=== PATIENT | male | born 1955 | race Caucasian/White ===

== ENCOUNTER 2019-06-25 12:27 | Outpatient (CLI) | payer MEDICARE, SELFPAY ==
--- NOTE | 2019-06-25 12:30 | USCV_ITS ---
Alli Dowd Age: 64 Gender: M : 1955 Exam Date: 06/25/2019 12:29 Ordering Phys: Nilsa Lane MD ([email or web address]) Technologist: Ced Olvera Exam Location: [facility] [place] Indication: CCA STENOSIS Risk Factors: None Previous Vascular Surgery: RT LEG ART GRAFT Right Brachial BP: / Left Brachial BP: / Right Left Velocity (cm/s) Spectral Plaque Velocity (cm/s) Spectral Plaque Syst/Diast Broadening Syst/Diast Broadening 56.70/ 18.60 Prox CCA 64.90 / 17.90 40.40/ 12.40 Mid CCA 63.20 / 17.10 50.50/ 17.90 Hetro Distal CCA 67.50 / 19.70 Hetro 196.00/45.60 Hetro Prox ICA 94.80 / 30.90 Hetro 141.30/54.70 Mid ICA 112.50/ 33.10 198.20/43.30 Distal ICA 111.40/ 34.20 406.70 ECA 284.00 3.50 ICA/CCA 1.67 Antegrade Vertebral Retrograde 78.90/ 11.80 cm/s 46.60/ 21.00 cm/s Bi Subclavian Tri 209.6 152.5 0 0 FINDINGS Moderate to heavy heterogeneous plaques at the right bifurcation and proximal internal carotid artery Moderate heterogeneous plaques of the left bifurcation and proximal internal carotid artery Retrograde flow in the left vertebral artery. Elevated velocities in the external carotid arteries bilaterally CONCLUSIONS Moderate to heavy heterogeneous plaques at the right bifurcation and proximal internal carotid artery with velocity elevation consistent with 50-79% stenosis. Moderate heterogeneous plaques at the left bifurcation and proximal internal carotid artery with velocity elevation consistent with 16-49% stenosis. Elevated velocity in the external carotid arteries bilaterally, suggestive of hemodynamically significant stenosis. Retrograde flow in the left vertebral artery, suggestive of high-grade stenosis in the left proximal subclavian artery. Compared to the previous study from June 2018, the retrograde flow in the left vertebral artery appears to be new Consider CTA, to better evaluate the arch vessels Dr Nilsa Lane MD [facility] (Electronically Signed) Final Date: 26 June 2019 09:08 S
== END 2019-06-25 12:28 | disposition home or self-care (01) ==
LOC: US 12:29
PROVIDERS: Family Provider Nurse Practitioner Family; PCP Family Medicine; Visit Provider Internal Medicine Cardiovascular Disease
DX: I65.23 Occlusion and stenosis of bilateral carotid arteries (principal)
CPT/HCPCS: 93880

== ENCOUNTER 2019-07-10 08:39 | Outpatient (CLI) | payer MEDICARE, SELFPAY ==
--- NOTE | 2019-07-10 09:00 | CT_ITS ---
WS: [id number] CT ANGIOGRAM CAROTID ARTERIES HISTORY: Abnormal Ultrasound, possible RIGHT carotid stenosis. TECHNIQUE: CT angiogram is performed of the carotid arteries. During arterial injection imaging is ob tained from the skull base to the aortic arch in 1.25 mm imaging. Coronal and sagittal reformats are submitted, MIP imaging also reviewed. Additional multiplanar reformats of the carotid arteries are turcios bmitted. NASCET criteria utilized. All CT scans at [facility] use at least one of these d ose optimization techniques: automated exposure control; mA and/or kV adjustment per patient size (in cludes targeted exams where dose is matched to clinical indication); or iterative reconstruction. CONTRAST: Omnipaque 350; 95 mL IV. DLP: 922.99 mGycm COMPARISON: Carotid ultrasound 06/25/2019. Right carotid: Common carotid artery: Mild atherosclerosis with no significant stenosis. Internal carotid artery: Calcified plaque and intimal thickening at the bifurcation. Stenosis calcula alexsander near 60%. External carotid artery: Severe stenosis external carotid artery. Left carotid: Common carotid artery: Mild atherosclerosis at the origin from the arch. Internal carotid artery: No plaque or stenosis. External carotid artery: Patent. Right vertebral artery: Unremarkable. Left vertebral artery: Unremarkable. Arises normally from the left subclavian artery. Subclavian arteries: Mild atherosclerosis proximal LEFT subclavian significant stenosis. Negative RIG HT subclavian for significant stenosis. Upper thorax: Chronic emphysematous changes. Thyroid gland: Normal. Osseous structures: Prior anterior cervical fusion with interbody spacer at C6-7. Skull base: Moderate calcification in the intracranial carotid arteries. No stenosis. Carotid arterie s are only included through the cavernous sinuses. There is a large artery extending from the tip of the basilar artery anteriorly to communicate with the distal RIGHT ICA. CT/CT angio neck 37245 IMPRESSION: 1. Focal stenosis 60% involving the proximal RIGHT ICA. 2. No significant stenosis LEFT ICA. 3. No LEFT subclavian artery stenosis. 4. RIGHT external carotid artery stenosis.
[2019-07-10 10:21] LABS: Blood Urea Nitrogen 17 mg/dL (8-23)
[2019-07-10] MEDS: iohexol 350 mg/mL 100 mL Btl IV (11:02)
== END 2019-07-10 08:40 | disposition home or self-care (01) ==
LOC: RADWPI 08:45
PROVIDERS: Family Provider Nurse Practitioner Family; PCP Nurse Practitioner Family; Visit Provider Internal Medicine Cardiovascular Disease
DX: I65.21 Occlusion and stenosis of right carotid artery
CPT/HCPCS: 70498; 82565; 84520; Q9967

== ENCOUNTER 2020-06-09 14:49 | Outpatient (CLI) | payer MEDICARE, SELFPAY ==
--- NOTE | 2020-06-09 15:00 | USCV_ITS ---
Alli Dowd Age: 65 Gender: M : 1955 Exam Date: 06/09/2020 15:20 Ordering Phys: Nilsa Lane MD ([email or web address]) Technologist: Ced Olvera Exam Location: [facility] [place] Indication: HX OF CCA STENOSIS Risk Factors: None Previous Vascular Surgery: Right Brachial BP: / Left Brachial BP: / Right Left Velocity (cm/s) Spectral Plaque Velocity (cm/s) Spectral Plaque Syst/Diast Broadening Syst/Diast Broadening 83.80/ 20.00 Prox CCA 92.40 / 15.50 64.80/ 19.60 Mid CCA 87.00 / 20.20 71.95/ 20.35 Hetro Distal CCA 83.10 / 22.50 Hetro 136.40/47.35 Hetro Prox ICA 96.00 / 22.30 Hetro 138.20/51.60 Hetro Mid ICA 102.50/ 31.60 Hetro 196.00/36.50 Distal ICA 117.00/ 36.80 223.10 ECA 259.40 2.07 ICA/CCA 1.27 Antegrade Vertebral Antegrade 65.80/ 12.80 cm/s 79.40/ 5.50 cm/s Tri Subclavian Bi 132.1 155.5 0 0 FINDINGS Mild to moderate plaques at the bifurcations bilaterally Intimal thickening in the common carotid arteries bilaterally Antegrade flow in the vertebral arteries bilaterally Elevated velocity in the right distal internal carotid artery Elevated velocities in the external carotid arteries bilaterally Antegrade flow in the vertebral arteries bilaterally CONCLUSIONS 1. Elevated velocity, suggestive of 50 to 69% stenosis at the right bifurcation and less than 50% stenosis at the left bifurcation 2. Elevated velocities at the external carotid arteries, suggestive of hemodynamically significant stenosis 3. Elevated velocity in the distal right internal carotid artery, may suggest hemodynamically significant stenosis. 4. No significant stenosis in the subclavian arteries Compared to the previous study from 06/25/2019, there may not be a significant change Dr Nilsa Lane MD [facility] (Electronically Signed) Final Date: 10 June 2020 21:29 S
== END 2020-06-09 14:50 | disposition home or self-care (01) ==
PROVIDERS: PCP Nurse Practitioner Family; Visit Provider Internal Medicine Cardiovascular Disease
DX: I65.23 Occlusion and stenosis of bilateral carotid arteries (principal)
CPT/HCPCS: 93880

== ENCOUNTER 2021-10-04 06:06 | Outpatient (CLI) | payer MEDICARE, SELFPAY ==
--- NOTE | 2021-10-04 06:30 | USCV_ITS ---
Alli Dowd Age: 66 Gender: M : 1955 Exam Date: 10/04/2021 06:18 Ordering Phys: Nilsa Lane MD ([email or web address]) Technologist: Exam Location: [facility] [place] Indication: mumur BP: 140 / 75 HR: 58 Rhythm: Sinus Technical Quality: Adequate MEASUREMENTS (Male / Female) Normal Values 2D ECHO LV Diastolic Diameter PLAX 4.1 cm 4.2 - 5.9 / 3.9 - 5.3 cm LV Systolic Diameter PLAX 3.0 cm IVS Diastolic Thickness 1.1 cm 0.6 - 1.0 / 0.6 - 0.9 cm IVS Systolic Thickness 1.3 cm LVPW Diastolic Thickness 1.2 cm 0.6 - 1.0 / 0.6 - 0.9 cm LVPW Systolic Thickness 1.4 cm LVOT Diameter 2.0 cm LV Ejection Fraction 2D Teich 55.3 % LV Ejection Fraction MOD 2C 77.5 % LV Ejection Fraction 2C AL 78.0 % LA Diameter 3.6 cm Aorta at Sinotubular Diameter 2.9 cm IVC Diameter 1.6 cm M-MODE Aortic Annulus Diameter 3.0 cm LA Ao Ratio MM 1.1 MV E Point Septal Separation 0.9 cm DOPPLER AV Peak Velocity 211.0 cm/s LVOT Peak Velocity 127.0 cm/s AV Area Cont Eq vti 2.1 cm squared AV Area Cont Eq pk 1.9 cm squared MV Area PHT 5.0 cm squared Mitral E to A Ratio 1.3 MV E' Velocity 49.0 cm/s Mitral E to MV E' Ratio 7.7 Mitral E to LV E' Lateral Ratio 6.8 Mitral E to LV E' Septal Ratio 9.2 TR Peak Velocity 170.7 cm/s TR Peak Gradient 11.7 mmHg TV Peak E Velocity 73.0 cm/s Right Atrial Pressure 3.0 mmHg Pulmonary Artery Systolic Pressu 14.7 mmHg PV Peak Velocity 98.0 cm/s FINDINGS Left Ventricle Normal left ventricular size and systolic function, EF 76 %. Mild left ventricular hypertrophy. No regional wall motion abnormalities. Right Ventricle The right ventricle is normal in size and function. Right Atrium The right atrium is normal in size. Left Atrium The left atrium is normal in size. Mitral Valve Structurally normal mitral valve without significant stenosis or prolapse. There is no mitral regurgitation. Aortic Valve Thickened aortic valve. Possible bicuspid aortic valve. Peak velocity across the aortic valve was 2.1 m/s. The aortic valve area was calculated to be 2.0 cm squire Tricuspid Valve Trace tricuspid valve regurgitation. Pulmonic Valve No gross abnormalities noted no gross abnormalities noted Pericardium Normal pericardium without effusion. Aorta Normal ascending aorta dimension. IVC The inferior vena cava pulmonary and hepatic veins appear normal. CONCLUSIONS Normal left ventricular size and systolic function, EF 76 %. Mild left ventricular hypertrophy. No regional wall motion abnormalities. Possible bicuspid aortic valve with a valve area 2.1 cm squire- mild stenosis Trace tricuspid valve regurgitation. There is no pericardial effusion. There are no intracardiac masses. The valve stenosis appears to be new compared to the study from 09/13/[address] MD [facility] (Electronically Signed) Final Date: 04 Oct 2021 17:28 S
--- NOTE | 2021-10-04 07:15 | USCV_ITS ---
Alli Dowd Age: 66 Gender: M : 1955 Exam Date: 10/04/2021 06:32 Ordering Phys: Nilsa Lane MD ([email or web address]) Technologist: Exam Location: [facility] [place] Indication: cca stenosis Risk Factors: Previous Vascular Surgery: Right Brachial BP: / Left Brachial BP: / Right Left Velocity (cm/s) Spectral Plaque Velocity (cm/s) Spectral Plaque Syst/Diast Broadening Syst/Diast Broadening 61.70/ 16.50 Prox CCA 91.40 / 23.10 66.20/ 22.10 Mid CCA 73.50 / 22.20 60.60/ 19.80 Hetro Distal CCA 70.90 / 17.10 Hetro 132.20/43.30 Hetro Prox ICA 104.70/ 38.05 Hetro 186.80/59.20 Hetro Mid ICA 104.70/ 37.50 189.10/63.80 Distal ICA 104.80/ 36.70 239.30 ECA 234.70 2.86 ICA/CCA 1.16 Antegrade Vertebral Antegrade 39.30/ 10.30 cm/s 52.40/ 36.70 cm/s Tri Subclavian Tri 79.50 100.3 0 FINDINGS Moderate to heavy heterogeneous plaques at the right bifurcation and internal carotid artery Mild to moderate plaques of the left bifurcation and internal carotid artery Moderate to heavy plaques of the proximal external carotid arteries bilaterally Antegrade flow in the vertebral arteries bilaterally Normal Doppler flow velocities in the subclavian arteries bilaterally CONCLUSIONS Moderate to heavy heterogeneous plaques at the right bifurcation and internal carotid artery with velocity elevations, consistent with 50 to 69% stenosis. Mild to moderate plaques of the left bifurcation and internal carotid artery with velocity elevations consistent with a less than 50% stenosis Elevated velocities in the proximal external carotid arteries bilaterally suggesting hemodynamically significant stenosis. No significant stenosis in the vertebral and subclavian arteries, based on the above findings Compared to the study from 06/09/2020, there may not be a significant change Dr Nilsa Lane MD [facility] (Electronically Signed) Final Date: 05 Oct 2021 08:55 S
== END 2021-10-04 06:07 | disposition home or self-care (01) ==
LOC: RAD 06:08
PROVIDERS: PCP Nurse Practitioner Family; Visit Provider Internal Medicine Cardiovascular Disease
DX: R01.1 Cardiac murmur, unspecified (principal); R06.00 Dyspnea, unspecified; I65.23 Occlusion and stenosis of bilateral carotid arteries; I77.9 Disorder of arteries and arterioles, unspecified; I07.1 Rheumatic tricuspid insufficiency; I51.7 Cardiomegaly
CPT/HCPCS: 93306; 93880

== ENCOUNTER → 2021-10-26 09:35 | Outpatient (BNVA) | payer MEDICARE, SELFPAY | PROVIDERS: PCP Nurse Practitioner Family; Visit Provider Internal Medicine Cardiovascular Disease | DX: I25.10 Atherosclerotic heart disease of native coronary artery without angina pectoris (principal); R01.1 Cardiac murmur, unspecified; Z20.822 Contact with and (suspected) exposure to COVID-19 | CPT/HCPCS: 87635 ==

== ENCOUNTER → 2021-11-03 13:42 | Outpatient (BNVA) | payer MEDICARE, SELFPAY | PROVIDERS: PCP Nurse Practitioner Family; Visit Provider Internal Medicine Cardiovascular Disease | DX: I25.10 Atherosclerotic heart disease of native coronary artery without angina pectoris (principal); I10 Essential (primary) hypertension; R01.1 Cardiac murmur, unspecified; E78.2 Mixed hyperlipidemia; I65.23 Occlusion and stenosis of bilateral carotid arteries; F17.200 Nicotine dependence, unspecified, uncomplicated | CPT/HCPCS: 99214 ==

== ENCOUNTER 2021-11-05 10:56 | Day surgery (SDC) | payer MEDICARE, SELFPAY ==
[2021-11-05 06:20] VITALS: BMI 23.3
[2021-11-05 11:23] VITALS: BP 134/88; PULSE 55; RESP 16; TEMP 36.2; O2SAT 55
[2021-11-05] MEDS: sodium chloride 0.9% 1,000 ML 30 ML IV (11:27)
--- NOTE | 2021-11-05 11:31 | USCV_ITS ---
Alli Dowd Age: 66 Gender: M : 1955 Exam Date: 11/05/2021 12:53 Ordering Phys: Shelli Mancuso MD ([email or web address]) Technologist: LASHAUN [place] [facility] [place]: Bicuspid aortic valve BP: 156 / 79 HR: 54 Rhythm: Sinus Technical Quality: Adequate MEASUREMENTS (Male / Female) Normal Values Medications Patient given IV sedation by anesthesia service, for details please refer to the anesthesia report. Complications Intubation easy. Attempts x1. No blood on probe post procedure. Proc. Components The patient was brought to the JAYANT examination room in a fasting state after obtaining an informed consent. The JAYANT probe was passed into the posterior pharynx , mid-esophagus, distal esophagus, and gastric fundus. FINDINGS Left Ventricle Normal left ventricular size, systolic function and wall thickness, with no regional wall motion abnormalities. Left ventricular ejection fraction is estimated at 65 %. Right Ventricle Normal right ventricular size and systolic function. Right Atrium Normal right atrial size. Left Atrium Normal left atrial size. LA Appendage Normal left atrial appendage. Normal flow velocities in the left atrial appendage. No thrombus visualized in the left atrial appendage. IA Septum Normal interatrial septum. No patent foramen ovale or atrial septal defect by color Doppler and agitated saline. Mitral Valve Structurally normal mitral valve. No mitral valve stenosis. No mitral valve regurgitation. Aortic Valve Bicuspid aortic valve type I. Aortic valve peak velocity 1.3 m/s, mean gradient 3 mmHg. No aortic valve stenosis. Aortic valve area by planimetry of 2.2 cm squared. No aortic valve regurgitation. Tricuspid Valve Structurally normal tricuspid valve. No tricuspid valve stenosis. Trace tricuspid valve regurgitation. Pulmonic Valve Structurally normal pulmonic valve. Trace pulmonary valve regurgitation. Pericardium No pericardial effusion. Aorta Normal size aortic root and proximal ascending aorta. No artery dilation, aneurysm or dissection. Grade 3 atheroma in aortic arch. CONCLUSIONS 1. Normal left ventricular size, systolic function and wall thickness, with no regional wall motion abnormalities. Left ventricular ejection fraction is estimated at 65 %. 2. Bicuspid aortic valve type I. No aortic valve stenosis or regurgitation. Aortic valve area by planimetry of 2.2 cm squared. 3. No patent foramen ovale or atrial septal defect. Shelli Mancuso MD (Electronically Signed) Final Date: 10 November 2021 16:33 S
--- NOTE | 2021-11-05 12:23 | ANES.PREANE2 ---
Pre-Anesthetic Assessment Height/Weight: Height 1.8 m Weight 75.75 kg Temp Pulse Resp BP Pulse Ox 97.2 F L 55 L 16 134/88 55 L 11/05/21 11:23 11/05/21 11:23 11/05/21 11:23 11/05/21 11:23 11/05/21 11:23 Operation Date: 11/05/21 12:30 Proposed Procedures p JAYANT [id number],Q23.1(Not Applicable) - Nilsa Lane MD Familial anesthetic complications: None Was Beta Ayesha taken within 24 hours: N/A Was Clonidine taken within 24 hours: N/A Last intake: Intake Last Liquid Date 11/04/21 Last Liquid Time 21:00 Last Solid Date 11/04/21 Last Solid Time 21:00 Social No alcohol and No tobacco Exam alert, oriented x 3, clear to auscultation bilaterally and regular rate & rhythm Airway Submandibular: within normal limits Cervical ROM: within normal limits Mallampati: Class II Dentition: full CV/HEM Coronary Artery Disease (stent), Hypertension, Murmur and Peripheral Vascular Disease GI Gastroesophageal Reflux Disease Metabolic Diabetes Mellitus and Hyperlipidemia Anesthetic Plan ASA status: 3 Anesthesia: MAC Medications/Allergies Home Medications Medication Instructions Recorded Confirmed Last Taken Type aspirin 81 mg tablet,delayed 81 mg PO DAILY 11/07/19 11/05/21 11/05/21 06:00 History release (Adult Low Dose Aspirin) clopidogrel 75 mg tablet (Plavix) 75 mg PO DAILY 11/07/19 11/05/21 11/03/21 History dorzolamide 2 % eye drops 1 drop OPHTHALMIC (EYE) DAILY ml 11/07/19 11/05/21 11/02/21 History fluticasone propionate 50 2 spray INTRANASAL DAILY 11/07/19 11/05/21 11/05/21 History mcg/actuation nasal spray,suspension (Flonase Allergy Relief) isosorbide mononitrate 30 mg 30 mg PO DAILY 11/07/19 11/05/21 11/04/21 History tablet,extended release 24 hr lactobacillus combination no.8 3 3,000 mmu cells PO DAILY 11/07/19 11/05/21 10/29/21 History billion cell capsule (Adult Probiotic) losartan 100 mg tablet 100 mg PO DAILY 11/07/19 11/05/21 11/04/21 History magnesium chloride 64 mg 64 mg PO BID tab 11/07/19 11/05/21 10/26/21 History (magnesium chloride) tablet,delayed release (Mag 64) meloxicam 15 mg tablet 15 mg PO DAILY PRN 11/07/19 11/05/21 11/05/21 History nitroglycerin 0.4 mg sublingual 0.4 mg SUBLINGUAL Q5M PRN 11/07/19 11/05/21 6 Years Ago History tablet (Nitrostat) ~11/06/15 pantoprazole 40 mg tablet,delayed 40 mg PO DAILY 11/07/19 11/05/21 11/05/21 History release zinc gluconate 50 mg tablet 50 mg PO DAILY 11/07/19 11/05/21 10/29/21 History ezetimibe 10 mg tablet (Zetia) 10 mg PO DAILY #60 tab 11/20/19 11/05/21 11/04/21 Rx pravastatin 80 mg tablet 80 mg PO DAILY #90 tab 10/26/20 11/05/21 11/05/21 Rx amlodipine 2.5 mg tablet (Norvasc) 2.5 mg PO QAM tab 05/25/21 11/05/21 11/05/21 06:00 History amlodipine 5 mg tablet 5 mg PO .qpm tab 05/25/21 11/05/21 11/04/21 History Allergies Allergy/AdvReac Type Severity Reaction Status Date / Time lisinopril AdvReac ADR-Cough Verified 11/05/21 11:22 [id number]-ATD-SjD Reductase AdvReac ADR-Fatigue Verified 11/05/21 11:22 Inhibitor d [Zjmhynn-Mpr-Wul Reductase Inhibitor] Current Medications Generic Name Dose Route Start Last Admin Trade Name Freq PRN Reason Stop Dose Admin Sodium Chloride 1,000 mls @ 30 mls/hr 11/05/21 11:15 11/05/21 11:27 Sodium Chloride 0.9% IV 11/06/21 11:14 30 mls/hr .Q24H ROMAN Administration PFSH Anesthesia Medical History Arthritis ASHD (arteriosclerotic heart disease) Bilateral carotid artery stenosis Bradycardia Erectile dysfunction Finger amputation, traumatic Hyperlipidemia Hypertension NSTEMI (non-ST elevated myocardial infarction) Surgical History H/O hernia repair H/O neck surgery History of arthroscopic knee surgery Lens replaced Family History Mother Clotting disorder Lung disease Stroke Father CAD (coronary artery disease) Brother Cancer Sister Lung disease Other Family history of premature coronary artery disease Hypertension Denies family history of Diabetes Dementia Chronic kidney disease (CKD) Suicide Anesthesia complication Bleeding disorder Social History Smoking and tobacco status: current every day smoker Alcohol intake: never Data Anesthesia Cardiac Studies: Echocardiogram 10/04/21
--- NOTE | 2021-11-05 12:39 | W.PM.OPSUD ---
Surgery/Procedure H&P Update DATE OF PROCEDURE: November 05, 2021 DATE H&P PERFORMED: 11/03/21 H&P UPDATE INFORMATION: I have reviewed H&P completed within last 30 days, I have examined patient prior to procedure and No changes to prior documentation PREOP DIAGNOSIS: Bicuspid aortic valve with suspected stenosis PRIMARY INDICATION FOR PROCEDURE: Bicuspid aortic valve with suspected stenosis PLANNED PROCEDURE: Operation Date: 11/05/21 12:30 Proposed Procedures p JAYANT [id number],Q23.1(Not Applicable) - Dr. Mancuso PATIENT REASSESSED PRIOR TO SEDATION, WITH NO CHANGE NOTED: Yes PHYSICAL EXAM: alert, oriented x 3, clear to auscultation bilaterally and regular rate & rhythm
[2021-11-05 13:36] VITALS: BP 100/58; PULSE 48; RESP 16; TEMP 36.1; O2SAT 96
[2021-11-05 13:44] VITALS: BP 122/66; PULSE 51; RESP 16; O2SAT 100
[2021-11-05 13:54] VITALS: BP 121/94; PULSE 51; RESP 16; O2SAT 100
--- NOTE | 2021-11-05 14:44 | ANE.PACU2 ---
Inpatient post-anesthesia follow up: Airway intact: Yes Vital signs: Temperature 97.0 F Pulse Rate 51 Respiratory Rate 16 Blood Pressure 121/94 Pulse Oximetry 100 Oxygen Delivery Me thod Room Air Oxygen Flow Rate 4 Fraction of Inspir ed Oxygen Hydration adequate: Yes Nausea and vomiting: No Pain level: 1 Mental status: Baseline
== END 2021-11-05 14:15 | disposition home or self-care (01) ==
PROVIDERS: Internal Medicine Cardiovascular Disease; PCP Nurse Practitioner Family; Visit Provider Internal Medicine Cardiovascular Disease
PROC: (CPT 93312; principal; 2021-11-05 12:30)
DX: Q23.1 Congenital insufficiency of aortic valve (principal); I25.10 Atherosclerotic heart disease of native coronary artery without angina pectoris; Z95.5 Presence of coronary angioplasty implant and graft; I10 Essential (primary) hypertension; K21.9 Gastro-esophageal reflux disease without esophagitis; E11.9 Type 2 diabetes mellitus without complications; E78.5 Hyperlipidemia, unspecified; Z79.82 Long term (current) use of aspirin; M19.90 Unspecified osteoarthritis, unspecified site; I25.2 Old myocardial infarction
CPT/HCPCS: 93312; 93320; 93325; J2704; J7030

== ENCOUNTER → 2022-06-27 13:25 | Outpatient (BNVA) | payer MEDICARE, SELFPAY | PROVIDERS: PCP Nurse Practitioner Family; Visit Provider Internal Medicine Cardiovascular Disease | DX: I65.23 Occlusion and stenosis of bilateral carotid arteries (principal); I10 Essential (primary) hypertension; I25.10 Atherosclerotic heart disease of native coronary artery without angina pectoris; E78.2 Mixed hyperlipidemia; Q23.1 Congenital insufficiency of aortic valve; F17.200 Nicotine dependence, unspecified, uncomplicated | CPT/HCPCS: 99214 ==

== ENCOUNTER → 2022-09-22 14:10 | Outpatient (BNVA) | payer MEDICARE, SELFPAY | PROVIDERS: PCP Nurse Practitioner Family; Referring Provider Nurse Practitioner Family; Visit Provider Dermatology | DX: L30.9 Dermatitis, unspecified (principal); C44.311 Basal cell carcinoma of skin of nose; L57.0 Actinic keratosis; L98.8 Other specified disorders of the skin and subcutaneous tissue; L82.1 Other seborrheic keratosis; L81.4 Other melanin hyperpigmentation; L81.8 Other specified disorders of pigmentation | CPT/HCPCS: 11102; 17000; 17003; 99204 ==

== ENCOUNTER → 2022-10-11 07:46 | Outpatient (BNVA) | payer MEDICARE, SELFPAY | PROVIDERS: PCP Nurse Practitioner Family; Visit Provider Dermatology | DX: C44.311 Basal cell carcinoma of skin of nose (principal) | CPT/HCPCS: 13152; 17311; 17312 ==

== ENCOUNTER → 2022-10-21 08:55 | Outpatient (BNVA) | payer MEDICARE, SELFPAY | PROVIDERS: PCP Nurse Practitioner Family; Visit Provider Dermatology | DX: Z48.02 Encounter for removal of sutures (principal) | CPT/HCPCS: 99024 ==

== ENCOUNTER → 2022-12-26 13:29 | Outpatient (BNVA) | payer MEDICARE, SELFPAY | PROVIDERS: PCP Nurse Practitioner Family; Visit Provider Internal Medicine Cardiovascular Disease | DX: Q23.1 Congenital insufficiency of aortic valve (principal); E78.2 Mixed hyperlipidemia; I65.23 Occlusion and stenosis of bilateral carotid arteries; I10 Essential (primary) hypertension; I25.10 Atherosclerotic heart disease of native coronary artery without angina pectoris; F17.200 Nicotine dependence, unspecified, uncomplicated; I25.2 Old myocardial infarction; Z79.82 Long term (current) use of aspirin | CPT/HCPCS: 99214 ==

== ENCOUNTER 2023-02-08 07:26 | Outpatient (CLI) | payer MEDICARE, SELFPAY ==
--- NOTE | 2023-02-08 08:00 | USCV_ITS ---
Alli Dowd Age: 67 Gender: M : 1955 Exam Date: 02/08/2023 07:43 Ordering Phys: Nilsa Lane MD ([email or web address]) Technologist: CT Exam Location: [facility] – [place] Indication: Risk Factors: Previous Vascular Surgery: Right Brachial BP: / Left Brachial BP: / Right Left Velocity (cm/s) Spectral Plaque Velocity (cm/s) Spectral Plaque Syst/Diast Broadening Syst/Diast Broadening 115.80/25.40 Prox CCA 71.60 / 19.10 88.60/ 23.30 Mid CCA 64.40 / 15.10 64.50/ 21.80 Distal CCA 68.30 / 16.40 189.20/56.60 Prox ICA 71.40 / 29.70 170.90/49.60 Mid ICA 61.00 / 20.80 160.20/35.30 Distal ICA 77.20 / 22.40 324.70 ECA 200.30 1.63 ICA/CCA 1.08 Antegrade Vertebral Antegrade 32.90/ 7.10 cm/s 45.40/ 13.90 cm/s Tri Subclavian Bi 122.2 117.6 0 0 FINDINGS bilateral eca stenosis, ica stenosis on rt, left vert has [place] waveform which can indicate subclavian stenosis CONCLUSIONS Right ICA stenosis 50-69%. Moderate calcified atheromatous plaque right carotid bulb/ICA. Left ICA stenosis <50%. Moderate calcified atheromatous plaque left carotid bulb/ICA. Intimal thickening in the common carotid arteries and internal carotid arteries bilaterally. Normal antegrade Doppler flow noted in the right vertebral artery. Normal antegrade Doppler flow noted in the left vertebral artery. Marlon Randall MD (Electronically Signed) Final Date: 08 February 2023 12:15 S
== END 2023-02-08 07:27 | disposition home or self-care (01) ==
PROVIDERS: PCP Nurse Practitioner Family; Visit Provider Internal Medicine Cardiovascular Disease
DX: I65.23 Occlusion and stenosis of bilateral carotid arteries (principal)
CPT/HCPCS: 93880; 99214

== ENCOUNTER → 2023-07-12 10:43 | Outpatient (BNVA) | payer MEDICARE, SELFPAY | PROVIDERS: PCP Nurse Practitioner Family; Visit Provider Nurse Practitioner Family | DX: I25.10 Atherosclerotic heart disease of native coronary artery without angina pectoris (principal); I10 Essential (primary) hypertension; I65.23 Occlusion and stenosis of bilateral carotid arteries; F17.200 Nicotine dependence, unspecified, uncomplicated | CPT/HCPCS: 99214 ==

== ENCOUNTER → 2024-01-15 10:03 | Outpatient (BNVA) | payer MEDICARE, SELFPAY | PROVIDERS: PCP Nurse Practitioner Family; Visit Provider Internal Medicine Cardiovascular Disease | DX: I65.23 Occlusion and stenosis of bilateral carotid arteries (principal); I25.10 Atherosclerotic heart disease of native coronary artery without angina pectoris; I10 Essential (primary) hypertension; E78.2 Mixed hyperlipidemia; Q23.1 Congenital insufficiency of aortic valve; R06.9 Unspecified abnormalities of breathing | CPT/HCPCS: 99214 ==

== ENCOUNTER 2024-02-15 12:23 | Outpatient (CLI) | payer MEDICARE, SELFPAY ==
--- NOTE | 2024-02-15 13:00 | USCV_ITS ---
Alli Dowd Age: 68 Gender: M : 1955 Exam Date: 02/15/2024 12:42 Ordering Phys: Nilsa Lane MD ([email or web address]) Technologist: JONI Exam Location: [facility] [place] Indication: Risk Factors: Previous Vascular Surgery: Right Brachial BP: / Left Brachial BP: / Right Left Velocity (cm/s) Spectral Plaque Velocity (cm/s) Spectral Plaque Syst/Diast Broadening Syst/Diast Broadening 76.00/ 21.60 Prox CCA 82.00 / 27.20 78.30/ 27.20 Mid CCA 78.30 / 27.20 47.70/ 20.70 Distal CCA 96.20 / 34.40 120.90/49.80 Prox ICA 77.50 / 31.70 120.90/39.30 Mid ICA 107.00/ 32.90 147.30/39.30 Distal ICA 64.10 / 23.20 152.20 ECA 279.90 3.10 ICA/CCA 1.10 Antegrade Vertebral Antegrade 58.60/ 12.00 cm/s 48.90/ 14.60 cm/s Tri Subclavian Tri 153.2 123.3 0 0 FINDINGS Moderate heterogenous plaques of the right bifurcation and proximal ICA internal carotid artery. Minimal plaques at the left bifurcation and proximal internal carotid artery. Intimal thickening in the common carotid arteries bilaterally Antegrade flow in the vertebral arteries bilaterally Elevated velocity in the left external carotid artery CONCLUSIONS Moderate heterogenous plaques of the right bifurcation and proximal ICA internal carotid artery with elevated Doppler flow velocity and ratios, consistent with 50 to 69% stenosis Minimal plaques at the left bifurcation and proximal internal carotid artery with Doppler features suggesting less than 50% stenosis Elevated velocity in the left external carotid artery suggesting hemodynamically significant stenosis . . Dr Nilsa Lane MD [facility] (Electronically Signed) Final Date: 23 February 2024 11:28 S
== END 2024-02-15 12:24 | disposition home or self-care (01) ==
LOC: RAD 12:25
PROVIDERS: PCP Nurse Practitioner Family; Visit Provider Internal Medicine Cardiovascular Disease
DX: I65.23 Occlusion and stenosis of bilateral carotid arteries (principal); I65.03 Occlusion and stenosis of bilateral vertebral arteries; R06.09 Other forms of dyspnea
CPT/HCPCS: 93880; 99214

== ENCOUNTER 2024-02-22 12:49 | Outpatient (CLI) | payer MEDICARE, SELFPAY ==
--- NOTE | 2024-02-22 | USCV_ITS ---
Alli Dowd Age: 68 Gender: M : 1955 Exam Date: 02/22/2024 13:13 Ordering Phys: Nilsa Lane MD Technologist: WALKER [place] [facility] [place]ication: KNOWN BICUSPID AO VALVE. RECHECK BP: / HR: 53 Rhythm: Sinus Technical Quality: Adequate MEASUREMENTS (Male / Female) Normal Values 2D ECHO LV Diastolic Diameter PLAX 3.5 cm 4.2 - 5.9 / 3.9 - 5.3 cm IVS Diastolic Thickness 1.1 cm 0.6 - 1.0 / 0.6 - 0.9 cm IVS Systolic Thickness 1.1 cm LVPW Diastolic Thickness 1.1 cm 0.6 - 1.0 / 0.6 - 0.9 cm LVPW Systolic Thickness 1.5 cm LVOT Diameter 2.0 cm LV Ejection Fraction 2D Teich 52.0 % LV Ejection Fraction MOD 4C 67.1 % LV Ejection Fraction MOD 2C 60.9 % LV Ejection Fraction 2C AL 63.8 % LA Diameter 3.7 cm RA Systolic Volume 4C AL 34.8 ml RA Systolic Volume 4C MOD 36.5 ml LA Sys Volume AL 42.9 cm cubed LA Sys Volume Index AL 22.0 cm cubed/m squared Aorta at Sinotubular Diameter 2.9 cm M-MODE LA Ao Ratio MM 1.3 AV Cusp Separation MM 1.8 cm DOPPLER AV Peak Velocity 205.3 cm/s LVOT Peak Velocity 114.0 cm/s AV Area Cont Eq vti 1.8 cm squared AV Area Cont Eq pk 1.8 cm squared MV Area PHT 3.2 cm squared Mitral E to A Ratio 0.8 TV Peak Velocity 177.7 cm/s TR Peak Velocity 215.0 cm/s TR Peak Gradient 18.5 mmHg TR Mean Velocity 121.0 cm/s TR Mean Gradient 7.7 mmHg TR Velocity Time Integral 64.9 cm TV Peak E Velocity 77.0 cm/s Right Atrial Pressure 3.0 mmHg Pulmonary Artery Systolic Pressu 21.5 mmHg PV Peak Velocity 89.0 cm/s FINDINGS Left Ventricle Normal left ventricular size and systolic function, EF 61%.mild left ventricular hypertrophy. No regional wall motion abnormalities. Grade I/IV diastolic dysfunction (abnormal relaxation filling pattern), normal to mildly elevated filling pressures. Right Ventricle The right ventricle is normal in size and function. Right Atrium The right atrium is normal in size. Left Atrium Mildly increased left atrial size. Mitral Valve Trace mitral valve regurgitation. Aortic Valve Bicuspid aortic valve with mild stenosis. Valve area 1.8 cm squared. Peak velocity of 2.05 m/s. Tricuspid Valve Trace tricuspid valve regurgitation. Pulmonic Valve No gross abnormalities noted Pericardium Normal pericardium without effusion. Aorta Normal ascending aorta dimension. IVC The inferior vena cava appears normal. CONCLUSIONS Normal left ventricular size and systolic function, EF 61%.mild left ventricular hypertrophy. No regional wall motion abnormalities. Grade I/IV diastolic dysfunction (abnormal relaxation filling pattern), normal to mildly elevated filling pressures. Mildly increased left atrial size. Bicuspid aortic valve with mild stenosis. Valve area 1.8 cm squared. Peak velocity of 2.05 m/s. Trace tricuspid valve regurgitation. Estimated pulmonary artery peak systolic pressure 22 mmHg There is no pericardial effusion. There are no intracardiac masses. Compared to the study from 10/04/2021, there may not be a significant change Dr Nilsa aLne MD FAC (Electronically Signed) Final Date: 27 February 2024 00:34 S
== END 2024-02-22 12:50 | disposition home or self-care (01) ==
PROVIDERS: PCP Nurse Practitioner Family; Visit Provider Internal Medicine Cardiovascular Disease
DX: I50.30 Unspecified diastolic (congestive) heart failure (principal); R06.09 Other forms of dyspnea
CPT/HCPCS: 93306

== ENCOUNTER → 2024-09-02 13:38 | Outpatient (BNVA) | payer MEDICARE, SELFPAY | PROVIDERS: Visit Provider Internal Medicine Cardiovascular Disease | DX: Q23.81 Bicuspid aortic valve (principal); I65.23 Occlusion and stenosis of bilateral carotid arteries; I25.10 Atherosclerotic heart disease of native coronary artery without angina pectoris; I10 Essential (primary) hypertension; E78.2 Mixed hyperlipidemia; I25.2 Old myocardial infarction; Z87.891 Personal history of nicotine dependence | CPT/HCPCS: 99214 ==

== ENCOUNTER → 2024-12-04 11:58 | Outpatient (BNVA) | payer MEDICARE, SELFPAY | PROVIDERS: PCP Nurse Practitioner Family; Visit Provider Nurse Practitioner Family | DX: M19.012 Primary osteoarthritis, left shoulder (principal); M19.011 Primary osteoarthritis, right shoulder | CPT/HCPCS: 73030 ==

== ENCOUNTER → 2025-01-17 10:25 | Outpatient (BNVA) | payer MEDICARE, SELFPAY | PROVIDERS: PCP Nurse Practitioner Family; Visit Provider Dermatology | DX: L30.9 Dermatitis, unspecified (principal); L72.0 Epidermal cyst; L81.4 Other melanin hyperpigmentation; D36.14 Benign neoplasm of peripheral nerves and autonomic nervous system of thorax; L82.1 Other seborrheic keratosis; L98.8 Other specified disorders of the skin and subcutaneous tissue; D18.01 Hemangioma of skin and subcutaneous tissue; Z08 Encounter for follow-up examination after completed treatment for malignant neoplasm; Z85.828 Personal history of other malignant neoplasm of skin; D48.5 Neoplasm of uncertain behavior of skin; L57.0 Actinic keratosis | CPT/HCPCS: 11102; 17000; 99214 ==

== ENCOUNTER → 2025-02-26 09:27 | Outpatient (BNVA) | payer MEDICARE, SELFPAY | PROVIDERS: PCP Nurse Practitioner Family; Visit Provider Nurse Practitioner Family | DX: I10 Essential (primary) hypertension (principal); Z12.5 Encounter for screening for malignant neoplasm of prostate | CPT/HCPCS: 80053; 80061; 83036; 84443; 85025; G0103 ==

== ENCOUNTER → 2025-03-03 09:16 | Outpatient (BNVA) | payer MEDICARE, SELFPAY | PROVIDERS: PCP Nurse Practitioner Family; Visit Provider Nurse Practitioner Family | DX: R50.9 Fever, unspecified (principal) | CPT/HCPCS: 87400; 87426 ==

== ENCOUNTER 2025-03-05 11:54 | Outpatient (CLI) | payer MEDICARE, SELFPAY ==
--- NOTE | 2025-03-05 12:15 | USCV_ITS ---
Alli Dowd Age: 69 Gender: M : 1955 Exam Date: 03/05/2025 12:28 Ordering Phys: Nilsa Lane MD ([email or web address]) Technologist: IMAN [place] [facility] [place]: stenosis Risk Factors: Previous Vascular Surgery: Right Brachial BP: / Left Brachial BP: / Right Left Velocity (cm/s) Spectral Plaque Velocity (cm/s) Spectral Plaque Syst/Diast Broadening Syst/Diast Broadening 80.90/ 18.70 Prox CCA 77.30 / 20.50 60.40/ 16.30 Mid CCA 79.10 / 17.10 51.30/ 22.20 Distal CCA 68.70 / 20.50 169.40/38.50 Prox ICA 81.80 / 32.20 120.30/30.00 Mid ICA 86.00 / 23.90 93.50/ 32.40 Distal ICA 57.40 / 12.30 168.70 ECA 214.40 1.80 ICA/CCA 1.20 Antegrade Vertebral Antegrade 23.10/ 6.30 cm/s 29.50/ 7.20 cm/s Tri Subclavian Tri 172.5 118.0 0 0 FINDINGS Comparison:. / Diffuse bilateral scattered calcified plaque and intimal thickening throughout the common carotid arteries and extending through the bifurcation. No significant elevation of systolic or diastolic velocities. Velocities are not as elevated today as on the prior exam. Antegrade vertebral artery. Mild elevation bilateral ECA velocity. CONCLUSIONS Bilateral ICA stenosis less than 50%. Less elevated right ICA velocity as compared to the prior exam. Plaque at the bifurcations. Dr. Flavia Soni DO (Electronically Signed) Final Date: 05 March 2025 13:23 S
== END 2025-03-05 11:55 | disposition home or self-care (01) ==
LOC: RAD 11:59
PROVIDERS: PCP Nurse Practitioner Family; Visit Provider Internal Medicine Cardiovascular Disease
DX: I65.23 Occlusion and stenosis of bilateral carotid arteries (principal)
CPT/HCPCS: 93880

== ENCOUNTER 2025-03-10 08:12 | Outpatient (CLI) | payer MEDICARE, SELFPAY ==
--- NOTE | 2025-03-10 08:30 | CT_ITS ---
WS: [id number] LDCT LUNG CANCER SCREENING TECHNIQUE: Noncontrast CT of the chest with coronal and sagittal reformatted images. CLINICAL INFORMATION: R09.89 - Other specified symptoms and signs involving the... COMPARISON: None. DLP: 58.51 mGy.cm DIvol: Mean CTDIvol: 1.10 (mGy) All CT scans at [facility] use at least one of these dose optimization techniques: automated exposure control; mA and/or kV adjustment per patient size (includes targeted exams where dose is matched to clinical indication); or iterative reconstruction. FINDINGS: Numerous scattered bilateral subcentimeter nodules the largest measuring 5 to 6 mm in the RIGHT upper lobe. Moderate chronic emphysematous changes. Aortic calcification. Coronary calcification. No mediastinal or hilar lymphadenopathy. No axillary lymphadenopathy. Small esophageal hiatal hernia. Adrenal glands are normal. Moderate thoracic kyphosis. Hypertrophic changes thoracic spine. CT/CT lung screening [id number] IMPRESSION: LUNG-RADS: 2-Benign Appearance or Behavior FOLLOW UP: 12 Month: Continue annual screening with LDCT
== END 2025-03-10 08:13 | disposition home or self-care (01) ==
LOC: RAD 08:13
PROVIDERS: PCP Nurse Practitioner Family; Visit Provider Nurse Practitioner Family
DX: I25.10 Atherosclerotic heart disease of native coronary artery without angina pectoris (principal); I10 Essential (primary) hypertension; I65.23 Occlusion and stenosis of bilateral carotid arteries; E78.5 Hyperlipidemia, unspecified; Q23.1 Congenital insufficiency of aortic valve; Z98.61 Coronary angioplasty status; F17.200 Nicotine dependence, unspecified, uncomplicated; I25.2 Old myocardial infarction
CPT/HCPCS: 71271; 99214

== ENCOUNTER 2025-03-31 11:35 | Outpatient (CLI) | payer MEDICARE, SELFPAY ==
--- NOTE | 2025-03-31 12:00 | USCV_ITS ---
Alli Dowd Age: 69 Gender: M : 1955 Exam Date: 03/31/2025 11:58 Ordering Phys: Nilsa Lane MD ([email or web address]) Technologist: Exam Location: [facility] [place] Indication: as BP: 120 / 78 HR: 61 Rhythm: Sinus Technical Quality: MEASUREMENTS (Male / Female) Normal Values 2D ECHO LV Diastolic Diameter PLAX 3.7 cm 4.2 - 5.9 / 3.9 - 5.3 cm IVS Diastolic Thickness 1.3 cm 0.6 - 1.0 / 0.6 - 0.9 cm IVS Systolic Thickness 1.7 cm LVPW Diastolic Thickness 1.4 cm 0.6 - 1.0 / 0.6 - 0.9 cm LVPW Systolic Thickness 2.2 cm LVOT Diameter 2.0 cm LV Ejection Fraction 2D Teich 57.1 % LV Ejection Fraction MOD 4C 72.2 % LV Ejection Fraction MOD 2C 71.2 % LV Ejection Fraction 2C AL 70.9 % LA Diameter 3.6 cm RA Systolic Volume 4C AL 34.0 ml RA Systolic Volume 4C MOD 32.5 ml LA Sys Volume AL 46.0 cm cubed LA Sys Volume Index AL 24.4 cm cubed/m squared Aorta at Sinotubular Diameter 3.1 cm IVC Diameter 1.1 cm M-MODE LA Ao Ratio MM 1.3 MV E Point Septal Separation 1.0 cm AV Cusp Separation MM 2.2 cm DOPPLER AV Peak Velocity 215.7 cm/s LVOT Peak Velocity 104.0 cm/s AV Area Cont Eq vti 1.7 cm squared AV Area Cont Eq pk 1.6 cm squared MV Peak Velocity 87.0 cm/s MV Area PHT 3.2 cm squared Mitral E to A Ratio 0.8 TR Peak Velocity 150.0 cm/s TR Peak Gradient 9.0 mmHg TV Peak E Velocity 77.0 cm/s Right Atrial Pressure 3.0 mmHg Pulmonary Artery Systolic Pressu 12.0 mmHg PV Peak Velocity 149.0 cm/s FINDINGS Left Ventricle Normal left ventricular size and systolic function, EF 71%.mild left ventricular hypertrophy. Slightly dyskinetic basal inferior wall segment.Grade I/IV diastolic dysfunction (abnormal relaxation filling pattern), normal to mildly elevated filling pressures. Right Ventricle Normal right ventricular size and systolic function. Right Atrium Normal right atrial size. Left Atrium Normal left atrial size. IA Septum Appears to be intact Mitral Valve Trace mitral valve regurgitation. Aortic Valve Moderate aortic valve calcification. Possible bicuspid aortic valve mild aortic valve stenosis, mean gradient 7.6 mmHg, RADHA 1.7 cm squared. Tricuspid Valve Trace tricuspid valve regurgitation. Pulmonic Valve No gross abnormalities noted Pericardium No pericardial effusion. Aorta Normal aortic annulus size. IVC Normal inferior vena cava. CONCLUSIONS Normal left ventricular size and systolic function, EF 71%.mild left ventricular hypertrophy. Slightly dyskinetic basal inferior wall segment. Grade I/IV diastolic dysfunction (abnormal relaxation filling pattern), normal to mildly elevated filling pressures. Moderate aortic valve calcification. Possible bicuspid aortic valve with mild aortic valve stenosis, mean gradient 7.6 mmHg, RADHA 1.7 cm squared. Trace of mitral and tricuspid regurgitation There is no pericardial effusion. There are no intracardiac masses. Compared to the study from 02/22/2024, there may not be a significant change Dr Nilsa Lane MD [facility] (Electronically Signed) Final Date: 06 April 2025 18:31 S
== END 2025-03-31 11:36 | disposition home or self-care (01) ==
LOC: RAD 11:37
PROVIDERS: PCP Nurse Practitioner Family; Visit Provider Internal Medicine Cardiovascular Disease
DX: Q23.1 Congenital insufficiency of aortic valve (principal); I51.7 Cardiomegaly; R93.1 Abnormal findings on diagnostic imaging of heart and coronary circulation; I35.8 Other nonrheumatic aortic valve disorders; I35.0 Nonrheumatic aortic (valve) stenosis
CPT/HCPCS: 93306

== ENCOUNTER 2025-04-16 07:18 | Outpatient (CLI) | payer MEDICARE, SELFPAY ==
[2025-04-16 07:46] VITALS: BMI 23.0
--- NOTE | 2025-04-16 07:48 | ECG_ITS ---
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 Interpretive Statements Procedure: A total of 0.4 mg of Lexiscan was infused over 20 seconds. The stress phase was continued for a total of 5 minutes. Sestamibi was injected 20 seconds after the Lexiscan infusion. Findings:The resting blood pressure was 172/75. Baseline resting heart rate was 55 bpm. After Lexiscan injection the patient's blood pressure dropped to 125/78. Heart rate increased to a maximum of 76 bpm. Baseline EKG showed sinus bradycardia with supraventricular ectopic beats and possible old septal myocardial infarction. No ST or T wave changes with stress test. Conclusion: 1. Stress EKG negative for ischemia. Occasional premature atrial contractions. 2. No Lexiscan induced chest pain 3. Normal blood pressure and heart rate response. 4. Nuclear myocardial perfusion scan pending; see separate report. Electronically Signed On 04-16-2025 17:37:14 ANNEALER HELPER by Andrea Ott M.D. [email or web address]
--- NOTE | 2025-04-16 07:49 | NMCV_ITS ---
NM dina perf SPECT r/s* [id number] Alli Dowd Age: 69 Gender: M : 1955 Exam Date: 04/16/2025 08:23 Ordering Phys: Nilsa Lane MD ([email or web address]) Technologist: CUATE Rich Exam Location: [facility] Indications: cp STRESS TEST Please [facility] for full findings IMAGE PROTOCOL Rest/Stress 1 Lexiscan Day Radiopharmaceutical Dose (mCi) Administration Site Administered by Rest: Tc-99m 10.5 IV Estefani Meyer AUTOMOTIVE DIAGNOSTIC TECHNICIAN Sestamibi Stress:Tc-99m 33 IV Estefani Meyer, AUTOMOTIVE DIAGNOSTIC TECHNICIAN Sestamibi Rest: 16-Apr-2025 60 Discovery 630 Stress: 16-Apr-2025 30 Discovery 630 0.4mg Lexiscan. Images obtained in supine and prone position. SPECT RESULTS Technical Quality: Good Raw Data Analysis: Normal Image Corrections: No attenuation or motion correction applied Summed Stress Score: 9 Summed Rest Score: 1 Summed Difference Score: 9 PERFUSION FINDINGS There is a small fixed perfusion defect in the apical inferior wall segment and a small to medium sized area of moderately reduced tracer counts in the mid inferior wall that improves on the resting images compared to the stress images. Review of the tomographic raw images reveal significant tracer uptake in the GI tract adjacent to the inferior wall of the heart. FUNCTIONAL RESULTS (calculated via Gated SPECT) Stress Image LV EF (%): 62 Stress EDV (mL):116 TID: 0.99 Stress ESV (mL):44 FUNCTIONAL FINDINGS: There is normal left ventricular systolic function. IMPRESSIONS 1. Possible small to medium sized area of moderately severe reversible ischemia in the mid inferior wall with an adjacent small area of infarction in the apical inferior wall segment. Concomitant diaphragmatic attenuation artifact is likely also present. 2. Normal LV cavity size and systolic function, EF 62%. Andrea Ott MD, FACC (Electronically Signed) Final Date: 16 April 2025 17:20 S
[2025-04-16 09:01] VITALS: BP 145/71; PULSE 55
== END 2025-04-16 07:19 | disposition home or self-care (01) ==
LOC: CDL 07:20
PROVIDERS: PCP Nurse Practitioner Family; Visit Provider Internal Medicine Cardiovascular Disease
DX: I25.10 Atherosclerotic heart disease of native coronary artery without angina pectoris (principal); R93.1 Abnormal findings on diagnostic imaging of heart and coronary circulation; R07.9 Chest pain, unspecified
CPT/HCPCS: 36415; 78452; 93017; 96374; A9500; J2785

== ENCOUNTER → 2025-04-22 13:57 | Outpatient (BNVA) | payer MEDICARE, SELFPAY | PROVIDERS: PCP Nurse Practitioner Family; Visit Provider Internal Medicine Cardiovascular Disease | DX: R94.39 Abnormal result of other cardiovascular function study (principal); I25.10 Atherosclerotic heart disease of native coronary artery without angina pectoris; I65.23 Occlusion and stenosis of bilateral carotid arteries; I10 Essential (primary) hypertension; E78.5 Hyperlipidemia, unspecified; Q23.81 Bicuspid aortic valve; Z98.61 Coronary angioplasty status; F17.200 Nicotine dependence, unspecified, uncomplicated; I25.2 Old myocardial infarction; I48.91 Unspecified atrial fibrillation | CPT/HCPCS: 80048; 85025; 85610; 86850; 86900; 99214 ==

== ENCOUNTER 2025-05-01 06:52 | Outpatient (CLI) | payer MEDICARE, SELFPAY ==
[2025-05-01] VITALS (20 sets, daily range): BP systolic 107–162; BP diastolic 58–87; PULSE 42–58; RESP 16–21; TEMP 36.8; O2SAT 95–96; BMI 23.0
--- NOTE | 2025-05-01 07:30 | XACV_ITS ---
Exam Room: 2 Ht: 183 cm Wt: 77 kg BSA: 1.98 m2 Gender: Male : 1955 Any Known Allergies: Other Exam Priority: Routine Procedure(s): Procedure Description: Diagnostic procedure Procedure Description: PCI procedure Procedure Description: Left Heart Catheterization Procedure Description: Drug Eluting Coronary Stent Procedure Description: PTCA Procedure Description: Miscellaneous Procedure Description: ACT Procedure Description: Coronary Angiography Domingo MCDOWELL; Diagnostic Cath Status: Elective Diagnostic Findings * The left main is a medium caliber vessel with no significant stenotic lesions. * The left anterior descending artery is a medium caliber vessel which appears to wraparound the LV apex. The proximal artery was found to have mild diffuse intimal irregularities. The artery also gives a high diagonal branch with minimal intimal irregularities proximally. No segment stenotic lesions were noted. * The left circumflex artery is a medium to large caliber codominant vessel which gives off a high OM branch( intermedius artery), which has around 20 to 30% narrowing near the ostium. Minimal intimal irregularities were noted in the proximal segment. No significant new lesions were seen. The mid circumflex artery was found to have a long stented segment which was found to be widely patent. Just proximal to the stent, there was an eccentric ,around 7o to 80% stenosis. Just beyond the stented segment also there was a lesion of around 60 to 70%. Distally after the takeoff of the third obtuse marginal branch, the artery appears to be totally occluded. * The right coronary artery is a small to medium caliber codominant vessel which was found to have diffuse narrowing of around 30 to 40% proximally. The right after the first RV branch, the artery appears to have an 80% lesion. PCI Status: Elective PCI Indication: New Onset Angina <= 2 months Interventional Findings * Proximal Right Coronary Artery to Mid Right Coronary Artery: 80% stenosis treated with a MDT R ROSENDO 2.75X15 ERI, and MDT NC EUPHORA RX 2.01F91IS BALLOON. 0% residual stenosis, LATA: 3 flow. * Mid Right Coronary Artery: 80% stenosis treated with a AB MINI TREK 2.00X30 RX BALLOON, MDT R ROSENDO 2.5X30 ERI, and MDT NC EUPHORA RX 2.08M36TY BALLOON. 0% residual stenosis, LATA: 3 flow. * Proximal Circumflex: 80% stenosis treated with a AB TREK 3.00X12 RX BALLOON, MDT R ROSENDO 3.5X12 ERI, MDT R ROSENDO 3.5X12 ERI, and MDT NC EUPHORA RX 4.72U88ES BALLOON. 0% residual stenosis, LATA: 3 flow. * Mid Circumflex: 80% stenosis treated with a AB TREK 3.00X12 RX BALLOON, MDT R ROSENDO 3.5X12 ERI, MDT R ROSENDO 3.5X12 ERI, and MDT NC EUPHORA RX 4.47W07EL BALLOON. 0% residual stenosis, LATA: 3 flow. * PCI to proximal and mid circumflex with four overlapping drug-eluting stent 3 in proximal and 1 in mid due to uncooperative movement of the patient resulting angiographically Miss when trying to put proximal stent in order to cover the geographical missed area third stent was placed. Details as above PCI to proximal and mid to distal RCA with 2 overlapping drug-eluting stent.Excellent angiographic result with LATA-3 flow was noted. No complication noted. Conclusions 1. 69-year-old white male with history of atherosclerotic heart diseas and previous PCI, presenting with increasing shortness of breath, chest discomfort and fatigue. He had an abnormal Myocardial perfusion imaging revealing ischemia in the inferolateral wall region. For further evaluation of his coronary status, a cardiac catheterization was recommended. Patient underwent left heart catheterization with left and right coronary angiogram today. The findings are as follows. 2. No significant of left main disease. The Left anterior descending artery was found to have minimal intimal irregularities. The stented segment of the circumflex artery was found to be patent proximal circumflex artery had around 70 to 80% segmental lesion. Just beyond the stented segment, there was a 60 to 70% lesion. Distal circumflex artery was found to be totally occluded. The right coronary artery, a co dominant vessel was found to have 30 to 40% diffuse narrowing proximally. Right after the first RV branch, the artery appeared to have a 80% lesion. The LVEDP was 21 mmHg. The patient had an aortic valve mean gradient of 13 mmHg (patient is known to have a bicuspid aortic valve). 3. I reviewed and discussed the cardiac catheterization data with the . It was thought to be appropriate to consider PCI of the circumflex and possibly right coronary artery lesions. Dr. Stark concurred with this plan and took over further management of this patient at this point. 4. Proximal Right Coronary Artery to Mid Right Coronary Artery was treated with a Drug Eluting Stent, and Balloon. 5. Mid Right Coronary Artery was treated with a Balloon, Drug Eluting Stent, and Balloon. 6. Proximal Circumflex was treated with a Balloon, Drug Eluting Stent, Drug Eluting Stent, and Balloon. 7. Mid Circumflex was treated with a Balloon, Drug Eluting Stent, Drug Eluting Stent, and Balloon. Recommendations * 1-Return to inpatient for close monitoring and routine cath care 2-Risk factor modification for secondary prevention 3-Statin and aspirin 81 mg life-long, if tolerated 4-Patient was pre-loaded with 600 mg of Plavix, continue Plavix 75mg p.o. daily for at least one year. We will assess at the end of one year again to continue if further or not 5-Continue optimal medical management 6-Follow up with Dr. Lane in four weeks and your primary care in 10 days. Diagnostic RX Recommendation: PCI w/o planned CABG LV EDP: 21 mmHg Left Ventriculography Findings: * LV gram was not performed because of concern of the dye overload. The LVEDP was 21 mmHg. Gradient across the aortic valve was 13 mmHg. Pressures Phase:Rest AO : 108 / 64 ( 83 ) @ 8:49:00 AM 139 / 63 ( 90 ) @ 9:03:00 AM 138 / 61 ( 90 ) @ 9:03:00 AM 154 / 73 ( 95 ) @ 9:18:00 AM 112 / 67 ( 84 ) @ 9:34:00 AM 108 / 45 ( 68 ) @ 9:51:00 AM 146 / 77 ( 103 ) @ 10:03:00 AM 128 / 74 ( 96 ) @ 10:15:00 AM LV : 159 / 6 / 21 @ 9:02:00 AM 162 / 9 / 19 @ 9:03:00 AM Valves Phase:DefaultPhase AV : 14.0 @ 10:29:20 AM AV Mean Gradient: 13.0 @ 10:29:20 AM Clinical Evaluation EBL: 5mL-10mL Procedural Details Procedure Consent Obtained. Admit Source: Out Patient. Pre-Procedure Time Out. Identified patient by full name and date of as verbalized by the patient/guarantor. Does the consent match the physician's order: Yes. Accurate & Complete Informed Consent: Yes. Inpatient/Outpatient History & Physical on Chart: Yes. If H&P is completed, is and addenduem needed: No; If yes, is the addendum complete: N/A. Visualize and Verify Site with Patient/Guarantor: N/A. Relevant Radiology Images available: Yes. The risks, benefits, and alternatives of sedation and/or procedure were discussed by physician. The patient agrees to continue. Procedure started. 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 Chest Pain Symptom Assessment: Typical Angina Symptoms. Correct patient, site and procedure confirmed by cath team. Current diagnosis: Chest Pain, Abnormal stress test. PERRLA. Strong, equal hand bank officer bilaterally. Lungs clear x 5 lobes. IV Site on Arrival: 20 gauge in the left anticubital. IV Fluids: 0.9% NaCl at KVO. 0 mL infused prior to label coder. Pre Procedural Pulses: bilateral radial was 3+. Pre Procedural Pulses: bilateral dorsalis pedis was 3+. Pre Procedural Pulses: bilateral posterior tibial was 2+. Oxygen started at 2liters/min via nasal canula. right radial was prepped with chloroprep then draped in the usual sterile fashion. right groin was prepped with chloroprep then draped in the usual sterile fashion. Baseline sample Acquired. HR: 49 BPM. Physician notified. Physician arrived. Physician scrubbed in. Immediate Pre-Procedure Time Out. Correct Patient: Yes; Correct Procedure: Yes; Correct Site: Yes; Correct Patient Position: Yes; Correct Supplies: Yes; Dried Flammable Prep: Yes; Blood Products Available: Yes;. Lidocaine 1% infiltrated to the right radial. Arterial access obtained. A 5 pakistani Mynor catheter in over wire. Multiple views taken of left coronary artery. Catheter removed over the exchange wire. A 5 pakistani JR4 catheter in over wire. Multiple views taken of right coronary artery. EDP Sample taken: LV 159/6,21; HR: 46 BPM; SpO2: 94%. Pullback taken: LV 162/9,19; AO 139/63(90); Mean: 13mmHg, Peak to Peak: 14mmHg, SEP: 12sec/min; HR: 46 BPM; SpO2: Off%. Catheter removed over the exchange wire. Dr. Stark arrived to review cine films. Patient's family updated. Dr. Stark scrubbed in to perform intervention. PCI Indication: Stable Angina. Add inventory: Co-harbor pilot, Endoflator. 6 pakistani XB 3.5 guide catheter was inserted over the wire. ACT drawn. Results 282 seconds. Therapeutic limits - pre-heparin administration 90-150 seconds and monitoring heparin during a vascular procedure >250 seconds. Guide catheter out. 6 pakistani XB 3 guide catheter was inserted over the wire. Runthrough guidewire was advanced through the guide catheter to lesion in the prox and mid Circ. Guidewire advanced across lesion. Balloon inserted to lesion in the mid Circ. Inflation number : 1 A AB TREK 3.00X12 RX BALLOON was prepped and advanced across the Mid CX , then inflated to 12 COLLEEN for 0:13 seconds. Inflation number: 2 The AB TREK 3.00X12 RX BALLOON was reinflated across the Mid CX, to 14 COLLEEN for 0:11 seconds. Inflation number: 1 The AB TREK 3.00X12 RX BALLOON was reinflated across the Prox CX, to 14 COLLEEN for 0:14 seconds. Inflation number: 2 The AB TREK 3.00X12 RX BALLOON was reinflated across the Prox CX, to 12 COLLEEN for 0:11 seconds. Balloon out. Results checked. Stent inserted to lesion in the mid Circ. Inflation Number : 3 A MDT R ROSENDO 3.5X12 ERI -Lot Number# [id number] EXP 07-21-2027 was prepped and advanced across the Mid CX. The stent was deployed at 12 COLLEEN for 0:12 seconds. Stent balloon out over wire. Stent inserted to lesion in the prox Circ. Inflation Number : 3 A MDT R ROSENDO 3.5X12 ERI -Lot Number# [id number] EXP 07-21-2027 was prepped and advanced across the Prox CX. The stent was deployed at 12 COLLEEN for 0:12 seconds. Stent inserted to lesion in the mid Circ. Inflation Number : 4 A MDT R ROSENDO 3.5X12 ERI -Lot Number# [id number] EXP 10-12-2026 was prepped and advanced across the Prox CX. The stent was deployed at 12 COLLEEN for 0:10 seconds. Stent balloon out over wire. Stent inserted to lesion in the mid Circ. Inflation Number : 4 A MDT R ROSENDO 3.5X12 ERI -Lot Number# [id number] EXP 07-21-2027 was prepped and advanced across the Mid CX. The stent was deployed at 12 COLLEEN for 0:14 seconds. Stent balloon out over wire. Balloon inserted to lesion in the mid Circ. Inflation number : 5 A MDT NC EUPHORA RX 4.21U95SI BALLOON was prepped and advanced across the Mid CX , then inflated to 8 COLLEEN for 0:13 seconds. Inflation number: 6 The MDT NC EUPHORA RX 4.10W99WX BALLOON was reinflated across the Mid CX, to 8 COLLEEN for 0:10 seconds. Inflation number: 7 The MDT NC EUPHORA RX 4.90N97BQ BALLOON was reinflated across the Mid CX, to 10 COLLEEN for 0:19 seconds. Inflation number: 5 The MDT NC EUPHORA RX 4.27K51WV BALLOON was reinflated across the Prox CX, to 12 COLLEEN for 0:19 seconds. Inflation number: 6 The MDT NC EUPHORA RX 4.76X21VB BALLOON was reinflated across the Prox CX, to 12 COLLEEN for 0:14 seconds. Inflation number: 7 The MDT NC EUPHORA RX 4.54U56UW BALLOON was reinflated across the Prox CX, to 14 COLLEEN for 0:13 seconds. Inflation number: 8 The MDT NC EUPHORA RX 4.79M52PT BALLOON was reinflated across the Prox CX, to 12 COLLEEN for 0:13 seconds. Balloon out. Results checked. Wire out. ACT drawn. Results out of range high. Therapeutic limits - pre-heparin administration 90-150 seconds and monitoring heparin during a vascular procedure >250 seconds. Guide catheter out. 6 pakistani JR 4 guide catheter was inserted over the wire. Runthrough guidewire was advanced through the guide catheter to lesion in the mid RCA. Inflation number : 1 A AB MINI TREK 2.00X30 RX BALLOON was prepped and advanced across the Mid RCA , then inflated to 12 COLLEEN for 0:13 seconds. Inflation number: 2 The AB MINI TREK 2.00X30 RX BALLOON was reinflated across the Mid RCA, to 12 COLLEEN for 0:11 seconds. Balloon inserted to lesion in the mid RCA. Inflation number: 3 The AB MINI TREK 2.00X30 RX BALLOON was reinflated across the Mid RCA, to 12 COLLEEN for 0:16 seconds. Inflation number: 4 The AB MINI TREK 2.00X30 RX BALLOON was reinflated across the Mid RCA, to 12 COLLEEN for 0:12 seconds. Inflation number: 5 The AB MINI TREK 2.00X30 RX BALLOON was reinflated across the Mid RCA, to 14 COLLEEN for 0:15 seconds. ACT drawn. Results 321 seconds. Therapeutic limits - pre-heparin administration 90-150 seconds and monitoring heparin during a vascular procedure >250 seconds. Results checked. Balloon out. Stent inserted to lesion in the mid RCA. Inflation Number : 6 A MDT R ROSENDO 2.5X30 ERI -Lot Number# [id number] Exp 04/10/2027 was prepped and advanced across the Mid RCA. The stent was deployed at 12 COLLEEN for 0:16 seconds. Stent balloon out over wire. Results checked. Stent inserted to lesion in the prox RCA. Inflation Number : 1 A MDT R ROSENDO 2.75X15 ERI -Lot Number# [id number] Exp 06/21/2027 was prepped and advanced across the Prox RCA. The stent was deployed at 12 COLLEEN for 0:12 seconds. Balloon inserted to lesion in the mid RCA. Inflation number : 7 A MDT NC EUPHORA RX 2.44L42QF BALLOON was prepped and advanced across the Mid RCA , then inflated to 12 COLLEEN for 0:18 seconds. Inflation number: 2 The MDT DARY EUPHORA RX 2.64K06DQ BALLOON was reinflated across the Prox RCA, to 16 COLLEEN for 0:16 seconds. Balloon out. Results checked. Wire out. Guide catheter out. A TR Band was successful obtaining hemostatsis at the Right Radial artery insertion site. Post Procedure: Pulses reassessed and unchanged. PERRLA. Strong, equal hand bank officer bilaterally. No VTE prophylaxis required. Medication's Wasted: Lidocaine 1% = 18 mL. Medication's Wasted: Nitro = 49.6 mg. Medication's Wasted: Heparin = 3000 units. Total IV fluids: 322 mL. Post-op diagnosis: Severe prox to mid circumflex and RCA Stenosis. Status post PCI placement of 6 ERI. Complications: None. Estimated blood loss: 5mL-10mL. Responsiveness - Normal response to verbal stimuli; alert and oriented, PERRLA. Airway - Unaffected, no intervention required; spontaneous ventilation. Circulation: W/N/L, pulses unchanged. Nausea/Vomiting: No. Procedure completed. Patient transferred by wheelchair to 1st floor. Vital chart was stopped. Access Site Site: Right Radial artery Sheath Size: 6 Fr Hemostasis Method: TR Band Hemostasis Success: Successful Procedure Medications Start: 8:42 AM Stop: 8:42 AM Medication: Fentanyl Amount: 50 mcg Route: I.V. Start: 8:42 AM Stop: 8:42 AM Medication: Versed Amount: 1 mg Route: I.V. Start: 8:47 AM Stop: 8:47 AM Medication: Nitrogylcerin Amount: 200 mcg Route: I.A. Start: 8:48 AM Stop: 8:48 AM Medication: Heparin Amount: 6000 units Route: I.V. Start: 8:49 AM Stop: 8:49 AM Medication: 0.9% Saline Amount: 250 ml Route: I.V. bolus Start: 9:22 AM Stop: 9:22 AM Medication: Heparin Amount: 3000 units Route: I.V. Start: 9:22 AM Stop: 9:22 AM Medication: Versed Amount: 1 mg Route: I.V. Start: 9:22 AM Stop: 9:22 AM Medication: Fentanyl Amount: 50 mcg Route: I.V. Start: 9:39 AM Stop: 9:39 AM Medication: Versed Amount: 1 mg Route: I.V. Start: 9:39 AM Stop: 9:39 AM Medication: Fentanyl Amount: 50 mcg Route: I.V. Start: 10:11 AM Stop: 10:11 AM Medication: Nitrogylcerin Amount: 200 mcg Route: I.A. Start: 10:10 AM Stop: 10:10 AM Medication: Versed Amount: 1 mg Route: I.V. Start: 10:10 AM Stop: 10:10 AM Medication: Fentanyl Amount: 50 mcg Route: I.V. Start: 10:24 AM Stop: 10:24 AM Medication: Plavix Amount: 300 mg Route: P.O. I, the attending physician, have reviewed and verified all procedure medications. Yes, all medications given per verbal order History/Risk Factors Hypertension: Yes Dyslipidemia: Yes Peripheral Arterial Disease (PAD): No Myocardial Infarction (PR): Yes Obesity: No Renal Disease: No Prior Interventions PCI: Yes CABG: No Valve Surgery: No Date of PCI: 08/07/2013 Report Signatures Interventional Workflow Finalized by Sangeeta Stark MD on 05/04/2025 04:26 PM Diagnostic Workflow Finalized by Dr Nilsa Lane MD [facility] on 05/02/2025 01:42 PM
--- NOTE | 2025-05-01 08:13 | W.PM.OPSUD ---
Surgery/Procedure H&P Update DATE OF PROCEDURE: May 01, 2025 DATE H&P PERFORMED: 04/22/25 H&P UPDATE INFORMATION: I have reviewed H&P completed within last 30 days, I have examined patient prior to procedure and No changes to prior documentation PREOP DIAGNOSIS: ASHD PRIMARY INDICATION FOR PROCEDURE: Patient with history of ASHD and previous PCI presenting with chest pain and abnormal Myocardial perfusion imaging PLANNED PROCEDURE: Operation Date: 05/01/25 08:30 Proposed Procedures p Cardiac Catheterization(Left) - Nilsa Lane MD and possible PCI PATIENT REASSESSED PRIOR TO SEDATION, WITH NO CHANGE NOTED: Yes PHYSICAL EXAM: alert, oriented x 3, clear to auscultation bilaterally and regular rate & rhythm AIRWAY EVAL/ANESTHESIA PLAN: normal airway, see other exam findings, ASA II, Risks, benefits & alternatives of sedation and/or procedure discussed and Patient agrees to continue as planned
--- NOTE | 2025-05-01 09:11 | P.OP_ITS ---
Operative Report Date of procedure: May 01, 2025 Surgeon: Nilsa Lane MD Procedure: The patient underwent left heart catheterization with left and right coronary angiogram today. He was found to have a high-grade lesion in the proximal circumflex artery. Moderate to severe disease in the mid left circumflex artery. The distal circumflex appears to be totally occluded. Of the codominant right coronary artery was found to have a high-grade lesion after the first RV branch. The left and descending artery on the left main were found to have no significant lesions. The LVEDP was 23 mmHg. Based on the above angiographic findings and the abnormal Myocardial perfusion imaging, it was thought to be appropriate to consider PCI of the circumflex lesions and possibly RCA lesion. Discussed and reviewed the cardiac c atheterization data with the . concurred with this plan and took over further management this patient at this point
--- NOTE | 2025-05-01 10:37 | P.PCN_ITS ---
Procedure Note: Date of procedure: 05/01/25 Pre-procedure diagnosis: Abnormal stress test/chest pain Post-procedure diagnosis: same Procedure: Left heart cath was performed by Dr. Lane. Patient was noted to have high- grade proximal mid to distal left circumflex high-grade stenosis which was treated with overlapping drug-eluting stents. RCA was codominant moderate caliber long vessel which has proximal mid and distal stenosis treated with overlapping drug-eluting stents All stents were postdilated with noncompliant balloon. Excellent angiographic result with LATA-3 flow was achieved no complication noted. Patient was loaded with 300 mg of Plavix Continue dual antiplatelet therapy in the form of Plavix and aspirin preferably 2 years because of multiple stents Continue home medications IV fluid 100 mL/h for next 10 hours Radial band as per protocol Full note to be dictated Coding Level of Care Code Acute Code for Yomi Lopez
--- NOTE | 2025-05-01 10:49 | PC.NURSE ---
Addendum entered by Jazmín Toscano RN 05/01/25 10:55: Dr Stark wants NS at 100 ml/hr to finish the 1L bag from tutorial laboratory supervisor. Original Note: Patient transferred from tutorial laboratory supervisor to CSU at 1140 with a right radial TR-Band.
--- NOTE | 2025-05-01 15:52 | PC.NURSE ---
Patient's right radial TR-band is removed at 1345. The air is removed slowly. 1 to 2 mls of air is removed at a time. When air was completely removed the TR-band was slowly removed and a 2x2 and tegaderm dressing is applied. Patient tolerated well. Patient is reeducated that he is not to use his right wrist/hand for the first 24 hours. Patient states understanding. Patient tolerated well.
--- NOTE | 2025-05-01 18:29 | PC.NURSE ---
Patient ambulated [address] No chest pain or shortness of breath noted.
[2025-05-02] VITALS (8 sets, daily range): BP systolic 114–135; BP diastolic 61–73; PULSE 48–60; RESP 18–29; TEMP 36.4–36.6; O2SAT 96–97
[2025-05-02 03:59] LABS: Hematocrit 41.3 % (37-53); Hemoglobin 13.70 g/dL (11.27-16.99); Mean Corpuscular HGB Conc 33.2 g/dL (30-55); Mean Corpuscular Hemoglobin 30.8 pg (27-33); Mean Corpuscular Volume 92.8 fl (82-101); Nucleated Red Blood Cells % 0 %; Platelet Count 306 10^3/cmm (157-399); Red Blood Count 4.45 10^6/uL (3.85-5.65); White Blood Count 9.26 10^3/uL (3.29-11.43)
[2025-05-02 04:20] LABS: Anion Gap 13.6 (5-19); Blood Urea Nitrogen 20 mg/dL (8-23); Calcium 8.9 mg/dL (8.5-10.5); Carbon Dioxide 24 mmol/L (22-29); Chloride 105 mmol/L (98-107); Glucose 105 mg/dL (65-115); Osmolality Calculated 289 mOsm/kg (285-295); Potassium 4.6 mmol/L (3.5-5.1); Sodium 138 mmol/L (136-145)
[2025-05-02] MEDS: lactobacillus 1 Tablet 1 TAB PO (05:47)
[2025-05-02] MEDS: ATORVASTATIN 20 MG TABLET PO (05:47)
[2025-05-02] MEDS: LOSARTAN 100 MG TABLET PO (05:48)
--- NOTE | 2025-05-02 11:15 | P.PN_ITS ---
Subjective 2 Subjective: Patient had a cardiac catheterization yesterday which revealed high-grade lesions in the left circumflex artery and the right coronary artery. He underwent a PCI of these lesions. He had an uneventful postprocedure course. Medications: Medication Review Details: Current Medications Acetaminophen (Acetaminophen 325 Mg Tablet) 650 mg PO Q6H PRN PRN Reason: MILD PAIN Hydrocodone Bitart/Acetaminophen (Hydrocodone-Acetaminophen 5-325 Mg Tablet) 1 tab PO Q4H PRN PRN Reason: MODERATE TO SEVERE PAIN Al Hydrox/Mg Hydrox/Simethicone (Dnrq-Pbv-Xkmjfwsub-Nichole 30 Ml Udc) 30 ml PO Q15M PRN PRN Reason: INDIGESTION Albuterol Sulfate (Albuterol 2.5 Mg/3 Ml Neb) 2.5 mg INHALATION QID PRN PRN Reason: shortness of breath or wheezing Albuterol Sulfate (Albuterol 2.5 Mg/3 Ml Neb) 2.5 mg INHALATION QID.RESPIRATORY PRN PRN Reason: SHORTNESS OF BREATH Alprazolam (Alprazolam 0.25 Mg Tablet) 0.25 mg PO TID PRN PRN Reason: ANXIETY Aspirin (Aspirin 81 Mg Ec Tablet) 81 mg PO DAILY [facility] Last Admin: 05/02/25 05:47 Dose: 81 mg Atorvastatin Calcium (Atorvastatin 20 Mg Tablet) 20 mg PO DAILY [facility] Last Admin: 05/02/25 05:47 Dose: 20 mg Atropine Sulfate (Atropine 1 Mg/Ml Sdv 1 Ml) 0.5 mg IVP PRN PRN PRN Reason: Symptomatic bradycardia Budesonide (Budesonide 0.5 Mg/2 Ml Neb) 0.5 mg INHALATION BID.RESPIRATORY [facility] Last Admin: 05/02/25 09:36 Dose: 0.5 mg Camphor/Menthol/Phenol (Blistex Lip Oint 7 Gm Tube) 1 applic TOPICAL PRN PRN PRN Reason: DRYNESS Clopidogrel Bisulfate (Clopidogrel 75 Mg Tablet) 75 mg PO DAILY [facility] Last Admin: 05/02/25 05:47 Dose: 75 mg Dorzolamide HCl (Dorzolamide 2% Op Soln 10 Ml Btl) 1 drop EYE-BOTH DAILY PRN PRN Reason: . Fentanyl (Fentanyl 50 Mcg/Ml Inj 2ml) 50 mcg IVP PRN PRN PRN Reason: Prior to sheath removal Sodium Chloride (Sodium Chloride 0.9%) 1,000 mls @ 100 mls/hr IV .Q10H [facility] Last Admin: 05/01/25 21:31 Dose: Not Given Isosorbide Mononitrate (Isosorbide Mononitrate Er 30 Mg Tablet) 60 mg PO DAILY [facility] Last Admin: 05/02/25 05:47 Dose: 60 mg Lactobacillus Acidophilus (Lactobacillus 1 Tablet) 1 tab PO DAILY [facility] Last Admin: 05/02/25 05:47 Dose: 1 tab Losartan Potassium (Losartan 100 Mg Tablet) 100 mg PO DAILY [facility] Last Admin: 05/02/25 05:48 Dose: 100 mg Magnesium Hydroxide (Magnesium Hydroxide 30 Ml Udc) 30 ml PO DAILY PRN PRN Reason: CONSTIPATION Meloxicam (Meloxicam 7.5 Mg Tablet) 15 mg PO DAILY PRN PRN Reason: Pain Last Admin: 05/02/25 05:47 Dose: 15 mg Naloxone HCl (Naloxone 0.4 Mg/Ml Sdv) 0.1 mg IVP Q2M PRN PRN Reason: RESPIRATORY RATE < 8/MIN Nitroglycerin (Nitroglycerin 0.4 Mg Sublingual Tablet) 0.4 mg SUBLINGUAL Q5M PRN PRN Reason: CHEST PAIN Non-Formulary Medication (Magnesium Chloride [Mag 64]) 64 mg PO BID [facility] Pantoprazole Sodium (Pantoprazole Dr 40 Mg Tablet) 40 mg PO DAILY [facility] Last Admin: 05/02/25 05:48 Dose: 40 mg Temazepam (Temazepam 15 Mg Capsule) 15 mg PO BEDTIME PRN PRN Reason: INSOMNIA Zinc Gluconate (Zinc Gluconate 50 Mg Tablet) 50 mg PO DAILY [facility] Last Admin: 05/02/25 05:47 Dose: 50 mg Vitals/I&O/Wt Last Vital Signs Temp 97.6 F 05/02/25 07:54 Pulse 51 L 05/02/25 09:39 Resp 18 05/02/25 09:39 BP 120/64 05/02/25 08:00 Pulse Ox 96 05/02/25 09:39 O2 Del Method Room Air 05/02/25 09:39 05/01/25 05/02/25 05/02/25 22:59 06:59 14:59 Intake Total 480 / 480 240 / 240 Balance 480 / -320 240 / 240 Weight last 48 hrs Weight 170 lb Physical Exam 2 Narrative: GENERAL: The patient is alert and oriented times three. Not in any acute distress. HEENT: No significant pallor, icterus or lymphadenopathy.Oral cavity: There are no mucous membrane lesions. NECK: Trachea appears to be central. No masses noted. No JVD or thyromegaly appreciated. RESPIRATORY: Chest is symmetrical. No intercostals muscle retraction or any accessory muscle activation. There is no chest wall tenderness. Breath sounds are heard bilaterally. No rales or rhonchi heard. No evidence of any consolidation. BREASTS: Deferred. HEART: The heart sounds are normal. No S3 or S4. No significant murmurs. No pericardial rub ABDOMEN: No vessel pulsations or distention. No tenderness. No organomegaly appreciated. Bowel sounds are normally heard. : Deferred. RECTAL: Deferred. LYMPHATIC: No lymphadenopathy noted in the neck. EXTREMITIES: No hematoma or bleeding at the arterial puncture site MUSCULOSKELETAL: No acute joint deformities or swelling SKIN: There are no significant rashes or ecchymosis NEUROPSYCHIATRIC: The patient is alert and oriented x3. Appears to be in a good mood. No tremors or rigidity noted. Data 05/02/25 03:37 05/02/25 03:37 Other Labs: Laboratory Last Values WBC 9.26 10^3/uL (3.29-11.43) 05/02/25 03:37 RBC 4.45 10^6/uL (3.85-5.65) 05/02/25 03:37 Hgb 13.70 g/dL (11.27-16.99) 05/02/25 03:37 Hct 41.3 % (37-53) 05/02/25 03:37 MCV 92.8 fl (82-101) 05/02/25 03:37 MCH 30.8 pg (27-33) 05/02/25 03:37 MCHC 33.2 g/dL (30-55) 05/02/25 03:37 RDW 13.1 % (12.1-15.1) 05/02/25 03:37 Plt Count 306 10^3/cmm (157-399) 05/02/25 03:37 MPV 9.8 fL (7.4-10.4) 05/02/25 03:37 Neut % (Auto) 59.2 % 05/02/25 03:37 Lymph % (Auto) 18.4 % 05/02/25 03:37 [place] % (Auto) 9.8 % 05/02/25 03:37 Eos % (Auto) 10.5 % 05/02/25 03:37 Baso % (Auto) 1.6 % 05/02/25 03:37 Neut # (Auto) 5.48 10^3/uL (1.8-7.7) 05/02/25 03:37 Lymph # (Auto) 1.7 10^3/uL (0.8-4.8) 05/02/25 03:37 [place] # (Auto) 0.9 10^3/uL (0.2-0.9) 05/02/25 03:37 Eos # (Auto) 1.0 10^3/uL (0.0-0.8) H 05/02/25 03:37 Baso # (Auto) 0.2 10^3/uL (0.0-0.1) H 05/02/25 03:37 Nucleated RBC % (auto) 0 % 05/02/25 03:37 Nucleated RBCs # 0.0 /100WBC 05/02/25 03:37 Sodium 138 mmol/L (136-145) 05/02/25 03:37 Potassium 4.6 mmol/L (3.5-5.1) 05/02/25 03:37 Chloride 105 mmol/L (98-107) 05/02/25 03:37 Carbon Dioxide 24 mmol/L (22-29) 05/02/25 03:37 Anion Gap 13.6 (5-19) 05/02/25 03:37 BUN 20 mg/dL (8-23) 05/02/25 03:37 Creatinine 1.1 mg/dL (0.7-1.2) 05/02/25 03:37 GFR Calculation 66.8 mL/min (90-130) L 05/02/25 03:37 Glucose 105 mg/dL (65-115) 05/02/25 03:37 Calculated Osmolality 289 mOsm/kg (285-295) 05/02/25 03:37 Calcium 8.9 mg/dL (8.5-10.5) 05/02/25 03:37 A&P Assessment and plan 1. ASHD (arteriosclerotic heart disease): Patient status post PCI of the circumflex artery lesions and the right coronary artery lesion. Currently seems to be stable. Vital signs are stable. No hematoma or bleeding from the arterial puncture site 2. Primary hypertension: The blood pressure is in the normal range. May continue on the current medications. 3. Mixed hyperlipidemia: Will continue on the current medications. 4. Bilateral carotid artery stenosis: Continue on the current manage 5. Bicuspid aortic valve determined by imaging: Patient cannot recall any intervention at this point. Plan: Since the patient's cardiac status seems to be stable, may be discharged home today. Patient will be seen at [facility] in 1 to 2 weeks Patient will be seen by me in the office as scheduled Patient is advised to continue the medications as mentioned above. The importance of compliance to diet, medications and exercise were discussed. In the event of the patient developing chest pain ,unusual palpitations or any new symptoms, is advised to contact me or come to the hospital. PDMP PDMP Reviewed: Not Reviewed Attestations 2 Medical Necessity Statement*: Discharge home today Coding Level of Care Code 21691 Diagnoses ASHD (arteriosclerotic heart disease) I25.10 Primary hypertension I10 Hypertension type: primary hypertension Mixed hyperlipidemia E78.2 Hyperlipidemia type: mixed hyperlipidemia Bilateral carotid artery stenosis I65.23 Bicuspid aortic valve determined by imaging Q23.81
--- NOTE | 2025-05-02 11:28 | PC.NURSE ---
Patient ambulated [address]
== END 2025-05-02 11:54 | disposition home or self-care (01) ==
LOC: CCL 06:53 → CSU 10:40
PROVIDERS: Internal Medicine Cardiovascular Disease; PCP Nurse Practitioner Family; Visit Provider Internal Medicine Cardiovascular Disease
DX: I25.118 Atherosclerotic heart disease of native coronary artery with other forms of angina pectoris (principal); I65.23 Occlusion and stenosis of bilateral carotid arteries; Q23.81 Bicuspid aortic valve; I10 Essential (primary) hypertension; E78.2 Mixed hyperlipidemia; K21.9 Gastro-esophageal reflux disease without esophagitis; I25.2 Old myocardial infarction; Z79.891 Long term (current) use of opiate analgesic; Z79.82 Long term (current) use of aspirin; Z79.02 Long term (current) use of antithrombotics/antiplatelets; Z82.49 Family history of ischemic heart disease and other diseases of the circulatory system; F17.200 Nicotine dependence, unspecified, uncomplicated
CPT/HCPCS: 36415; 80048; 85025; 85347; 93458; 96365; 99152; 99153; C1725; C1769; C1874; C1887; C1894; C9600; J1644; J2250; J3010; J3490; J7030; J7626; J9999; Q9967

== ENCOUNTER → 2025-05-20 13:28 | Outpatient (BNVA) | payer MEDICARE, SELFPAY | PROVIDERS: PCP Nurse Practitioner Family; Visit Provider Nurse Practitioner Family | DX: Z51.89 Encounter for other specified aftercare (principal); I25.10 Atherosclerotic heart disease of native coronary artery without angina pectoris; I10 Essential (primary) hypertension; Q23.81 Bicuspid aortic valve; I65.23 Occlusion and stenosis of bilateral carotid arteries; R06.00 Dyspnea, unspecified; R91.1 Solitary pulmonary nodule; R68.89 Other general symptoms and signs; Z95.5 Presence of coronary angioplasty implant and graft; F17.200 Nicotine dependence, unspecified, uncomplicated; I25.2 Old myocardial infarction | CPT/HCPCS: 99214 ==